=== PATIENT | female | born 1990 | race Caucasian/White ===

== ENCOUNTER 2017-09-06 21:48 | Emergency (ER) | payer OTHER ==
[~2017-09-06 21:48] MED LIST: NAPR550 PO; TAB-TAB PO
[2017-09-06 21:50] VITALS: BP 140/80; PULSE 84; RESP 20; TEMP 97.5; O2SAT 99
--- NOTE | 2017-09-06 22:34 | PD ---
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 She says the pain started tonight. She is having some bilateral pain but was having a very sharp stabbing pain in the right lower quadrant. She says she had a very dark bowel movement. She is about 7 weeks . she had gone to her primary care doctor 2 weeks ago and had a titer done and was told she was 5 weeks . She has not had any bleeding. She had one prior and had a miscarriage at 6 weeks gestation. [facility] Past Medical History Medical History: Denies Significant Hx Diminished Hearing: No Tetanus Vaccination: Unknown Influenza Vaccination: No ?: : 2 Para: 0 Past Surgical History Surgical History: No Previous Surgery Social History Alcohol Use: No Tobacco Use: No Substance Use: No Allergies-Medications (Allergen,Severity, Reaction): Coded Allergies: No Known Allergies (Unverified , 08/21/15) Reported Meds & Prescriptions Reported Meds & Active Scripts Active Review of Systems General / Constitutional: No: Fever, Chills Eyes: No: Diploplia Cardiovascular: No: Chest Pain or Discomfort, Palpitations Respiratory: No: Cough Gastrointestinal: Positive: Abdominal Pain Genitourinary: Positive: Pelvic Pain, No: Vaginal Bleeding Musculoskeletal: No: Myalgias, Arthralgias Skin: No Rash Neurologic: No: Weakness Physical Exam Narrative GENERAL: Well-developed female SKIN: Focused skin assessment warm/dry. HEAD: Atraumatic. Normocephalic. EYES: Pupils equal and round. No scleral icterus. No injection or drainage. ENT: No nasal bleeding or discharge. Mucous membranes pink and moist. NECK: Trachea midline. No JVD. CARDIOVASCULAR: Regular rate and rhythm. No murmur appreciated. RESPIRATORY: No accessory muscle use. Clear to auscultation. Breath sounds equal bilaterally. GASTROINTESTINAL: Abdomen soft, non-tender, nondistended. Hepatic and splenic margins not palpable. LARGE ANIMAL VETERINARIAN: There is no bleeding from the cervical os. There is mild discomfort with bimanual exam. I don't feel any masses MUSCULOSKELETAL: No obvious deformities. No clubbing. No cyanosis. No edema. NEUROLOGICAL: Awake and alert. No obvious cranial nerve deficits. Motor grossly within normal limits. Normal speech. PSYCHIATRIC: Appropriate mood and affect; insight and judgment normal. Data Data Last Documented VS Vital Signs Date Time Temp Pulse Resp B/P (MAP) Pulse Ox O2 Delivery O2 Flow Rate FiO2 09/06/17 21:50 97.5 84 20 140/80 (100) 99 Orders Orders Complete Blood Count With Diff (09/06/17 22:18) Urinalysis - C+S If Indicated (09/06/17 22:18) Beta Hcg (Quant/Titer) (09/06/17 22:18) Complete Rh (09/06/17 22:18) Us Pelvis (Ques Pr/Ect)W Trans (09/06/17 22:58) Labs Laboratory Tests Test 09/06/17 22:00 09/06/17 22:45 White Blood Count 12.5 TH/MM3 Red Blood Count 4.63 MIL/MM3 Hemoglobin 12.1 GM/DL Hematocrit 37.0 % Mean Corpuscular Volume 79.8 FL Mean Corpuscular Hemoglobin 26.0 PG Mean Corpuscular Hemoglobin Concent 32.6 % Red Cell Distribution Width 11.8 % Platelet Count 226 TH/MM3 Mean Platelet Volume 9.6 FL Neutrophils (%) (Auto) 78.7 % Lymphocytes (%) (Auto) 13.6 % Monocytes (%) (Auto) 5.9 % Eosinophils (%) (Auto) 1.3 % Basophils (%) (Auto) 0.5 % Neutrophils # (Auto) 9.8 TH/MM3 Lymphocytes # (Auto) 1.7 TH/MM3 Monocytes # (Auto) 0.7 TH/MM3 Eosinophils # (Auto) 0.2 TH/MM3 Basophils # (Auto) 0.1 TH/MM3 CBC Comment DIFF FINAL Differential Comment Human Chorionic Gonadotropin, Quant [id number] MIU/ML Urine Color JEMMA Urine Turbidity CLEAR Urine pH 6.0 Urine Specific [place] 1.028 Urine Protein NEG mg/dL Urine Glucose (UA) NEG mg/dL Urine Ketones 15 mg/dL Urine Occult Blood NEG Urine Nitrite NEG Urine Bilirubin NEG Urine Leukocyte Esterase TRACE Urine WBC 3-5 /hpf Urine Squamous Epithelial Cells 0-5 /hpf Urine Amorphous Sediment SMALL Urine Mucus MANY /lpf Microscopic Urinalysis Comment CULT NOT INDICATED MDM Medical Decision Making Medical Screen Exam Complete: Yes Emergency Medical Condition: Yes Medical Record Reviewed: Yes Differential Diagnosis Differential includes gastroenteritis, threatened AB, ectopic Narrative Course Beta titer is 107,825. Urine is negative for infection. She is Rh+. Hemoglobin is 12. Ultrasound shows a viable intrauterine Diagnosis Primary Impression: Intrauterine Additional Instructions: Follow-up with TRANSPORTATION ENGINEERING TECHNICIAN, return as needed Disposition: 01 DISCHARGE HOME Condition: Stable Puma Nicolas MD Sep 06, 2017 22:34
[2017-09-06 22:52] LABS: AUTOMATED NEUTROPHIL # 9.8 TH/MM3 (1.8-7.7); BASOPHIL # 0.1 TH/MM3 (0-0.2); BASOPHIL % 0.5 % (0.0-2.0); EOSINOPHIL # 0.2 TH/MM3 (0-0.4); EOSINOPHIL % 1.3 % (0.0-4.0); HEMO FLAGS DIFF FINAL; LYMPH % 13.6 % (9.0-44.0); LYMPHOCYTE # 1.7 TH/MM3 (1.0-4.8); MEAN CELL VOLUME 79.8 FL (80.0-100.0); MEAN CORPUSCULAR HGB CONC 32.6 % (32.0-36.0); MONO % 5.9 % (0.0-8.0); NEUT % 78.7 % (16.0-70.0); PLATELET COUNT 226 TH/MM3 (150-450); RED BLOOD COUNT 4.63 MIL/MM3 (4.00-5.30); RED CELL DISTRIBUTION WIDTH 11.8 % (11.6-17.2); WHITE BLOOD COUNT 12.5 TH/MM3 (4.0-11.0)
[2017-09-06 23:07] LABS: BLOOD, URINE NEG (NEG); GLUCOSE,URINE NEG (NEG); KETONE, URINE 15 mg/dL (NEG); NITRITE,URINE NEG (NEG)
[2017-09-06 23:19] LABS: MUCUS URINE MANY /lpf (OCC); URINE COLOR AMBER (YELLW/STRAW)
[2017-09-06 23:20] LABS: COMMENT (UR) CULT NOT INDICATED; CULTURE IF INDICATED CULT NOT INDICATED; SQUAMOUS EPITHELIAL CELL URINE 0-5 /hpf (0-5)
[2017-09-06 23:29] LABS: BETA HCG QUANT 107825 MIU/ML (0-5)
[2017-09-06 23:30] VITALS: BP 114/66; PULSE 77; RESP 20; O2SAT 99
--- NOTE | 2017-09-07 00:03 | RADRPT ---
EXAM DATE/TIME: 09/06/2017 23:31 [place] COMPARISON: No previous studies available for comparison. INDICATIONS : Pelvic pain. LAB(S): Beta-hC,825 MEDICAL HISTORY : . SURGICAL HISTORY : None. ENCOUNTER: Initial ACUITY: 3 days PAIN SCORE: 4/10 LOCATION: Bilateral pelvis MEASUREMENTS: UTERUS: 8.1 x 5.3 x 4.9 cm ENDOMETRIAL STRIPE: >20 mm RIGHT OVARY: Non visualized LEFT OVARY: 4.0 x 3.4 x 2.4 cm FREE FLUID: No CROWN RUMP LENGTH: 0.6 = 6 WKS 3 DAYS FHR: 131 BPM FINDINGS: UTERUS: Intrauterine . [place]-rump length measures 6.4mm correlating with a 6 week 3 day . F etal heart tones at 131 beats per minute. RIGHT OVARY: Right ovary not seen. LEFT OVARY: Left ovary contains a simple cyst measuring 2.8 cm. MISCELLANEOUS: No free fluid. CONCLUSION: 1. Intrauterine estimated 6 weeks 3 days. 2. Probable corpus luteal cyst left ovary measures 2.8 cm. 3. Nonvisualization right ovary. Fermin Joyner MD on September 07, 2017 at 0:00 Board Certified Radiologist. This report was verified electronically.
== END 2017-09-07 00:07 | disposition home or self-care (01) ==
LOC: PHED 21:48
DX: O26.891 Other specified pregnancy related conditions, first trimester (principal); R10.2 Pelvic and perineal pain; Z3A.01 Less than 8 weeks gestation of pregnancy
CPT/HCPCS: 76700; 81001; 84702; 85025; 86901; 99284

== ENCOUNTER 2018-04-22 05:52 | Inpatient (IN) | payer OTHER ==
[2018-04-22] MEDS ORDERED: LIDOCAINE 1.5%/EPINEPHrine 1:200,000 PF 5 ML AMP ONE (07:19)
[2018-04-22] MEDS ORDERED: fentaNYL 2MCG-BUPIV 0.125% INJ 150 ML EPIDURAL ONE (07:21)
[2018-04-22] MEDS ORDERED: LACTATED RINGER'S 1000 ML INJ 1,000 ML IV SCH ×3 (07:25→14:29)
[2018-04-22] MEDS ORDERED: LACTATED RINGER'S 1000 ML INJ 1,000 ML IV PRN (07:25)
[2018-04-22] MEDS ORDERED: LIDOCAINE HCL 1% 50 ML VIAL I-DERMAL PRN (07:30)
[2018-04-22] MEDS ORDERED: CITRIC ACID-SODIUM CITRATE LIQ 30 ML UDC PO SCH ×2 (07:30→10:00)
[2018-04-22] MEDS ORDERED: MINERAL OIL 10 ML VIAL TOPICAL PRN (07:30)
[2018-04-22] MEDS ORDERED: LIDOCAINE HCL 1% 50 ML VIAL INFIL PRN (07:30)
[2018-04-22] MEDS ORDERED: SODIUM CHLORID 0.9% 500 ML INJ 500 ML IV PRN (07:30)
[2018-04-22] MEDS ORDERED: OXYTOCIN 30 UNITS-500ML PREMIX 500 ML IV ONE ×2 (07:30→09:30)
[2018-04-22 07:37] LABS: BASOPHIL % 0.3 % (0.0-2.0); EOSINOPHIL # 0.1 TH/MM3 (0-0.4); EOSINOPHIL % 0.9 % (0.0-4.0); HEMATOCRIT 30.2 % (35.0-46.0); HEMOGLOBIN 9.6 GM/DL (11.6-15.3); LYMPH % 14.9 % (9.0-44.0); LYMPHOCYTE # 1.9 TH/MM3 (1.0-4.8); MEAN CELL VOLUME 74.3 FL (80.0-100.0); MEAN CORPUSCULAR HEMOGLOBIN 23.6 PG (27.0-34.0); MEAN CORPUSCULAR HGB CONC 31.8 % (32.0-36.0); MEAN PLATELET VOLUME 11.2 FL (7.0-11.0); MONO % 7.1 % (0.0-8.0); MONOCYTE # 0.9 TH/MM3 (0-0.9); NEUT % 76.8 % (16.0-70.0); PLATELET COUNT 155 TH/MM3 (150-450); RED BLOOD COUNT 4.07 MIL/MM3 (4.00-5.30); RED CELL DISTRIBUTION WIDTH 14.6 % (11.6-17.2)
[2018-04-22] MEDS ORDERED: SODIUM CHLOR 0.9% 1000 ML INJ 1,000 ML IV PRN (07:45)
[2018-04-22 07:56] LABS: BACTERIA, URINE MOD /hpf; BILIRUBIN, URINE NEG (NEG); BLOOD, URINE NEG (NEG); GLUCOSE,URINE NEG (NEG); KETONE, URINE NEG (NEG); MUCUS URINE MANY /lpf (OCC); NITRITE,URINE NEG (NEG); PH, URINE 6.5 (5.0-8.5); SQUAMOUS EPITHELIAL CELL URINE 16 /hpf (0-5); URINE COLOR YELLOW (YELLW/STRAW); URINE LEUKOCYTE ESTERASE LARGE (NEG)
--- NOTE | 2018-04-22 08:04 | HHI.HP ---
HPI Chief Complaint breech for version or CS Date Seen: Apr 22, 2018 Time Seen: 07:00 Travel History International Travel<30 Days: No Contact w/Intl Traveler<30Days: No Known Affected Area: No History of Present Illness HPI 28 yo who is 40 weeks and here with breech infant wants version and then CS if we are not successful. Pt ready for epidural and understands risks and benefits Weeks Gestation: 40 Para: 0 : 1 History Past Medical History Medical History: Denies Significant Hx Past Surgical History Surgical History: No Previous Surgery Family History Family History: Negative Social History Alcohol Use: No Tobacco Use: No Substance Abuse: No Allergies-Medications (Allergen,Severity, Reaction): Coded Allergies: No Known Allergies (Unverified Allergy, Unknown, 04/22/18) Review of Systems Except as stated in HPI: all other systems reviewed are Neg Physical Exam Narrative GENERAL: Well-nourished, well-developed patient. SKIN: Warm and dry. HEAD: Normocephalic and atraumatic. EYES: No scleral icterus. No injection or drainage. ENT: No nasal drainage noted. Mucous membranes pink. Airway patent. NECK: Supple, trachea midline. No JVD. CARDIOVASCULAR: Regular rate and rhythm without murmurs, gallops, or rubs. RESPIRATORY: Breath sounds equal bilaterally. No accessory muscle use. BREASTS: Bilateral exam showed no masses , no retractions, no nipple discharge. ABDOMEN/GI: Abdomen soft, non-tender, bowel sounds present, no rebound, no guarding Gravid to [-] weeks size Fundal Height: 40 GENITOURINARY: External Genitalia: intact and normal in appearance BUS glands: [-] Cervix: [-] Dilatation: closed Effacement: [-] Station: [-] Presentation: breech Membranes: intact Uterine Contractions: none FHT's: Category: 1 Baseline: [-] Reactive: [-] Variability: [-] Decels: [-] EXTREMITIES: No cyanosis or edema. BACK: Nontender without obvious deformity. No CVA tenderness. NEUROLOGICAL: Awake and alert. Motor and sensory grossly within normal limits. Five out of 5 muscle strength in all muscle groups. Normal speech. Caprini VTE Risk Assessment Caprini VTE Risk Assessment: No/Low Risk (score <= 1) Caprini Risk Assessment Model Point Value = 1 Point Value = 2 Point Value = 3 Point Value = 5 Age 41-60 Minor surgery BMI > 25 kg/m2 Swollen legs Varicose veins or History of unexplained or recurrent spontaneous Oral contraceptives or hormone replacement Sepsis (< 1 month) Serious lung disease, including pneumonia (< 1 month) Abnormal pulmonary function Acute myocardial infarction Congestive heart failure (< 1 month) History of inflammatory bowel disease Medical patient at bed rest Age 61-74 Arthroscopic surgery Major open surgery (> 45 min) Laparoscopic surgery (> 45 min) Malignancy Confined to bed (> 72 hours) Immobilizing plaster cast Central venous access Age >= 75 History of VTE Family history of VTE Factor V Leiden Prothrombin [id number] Lupus anticoagulant Anticardiolipin antibodies Elevated serum homocysteine Heparin-induced thrombocytopenia Other congenital or acquired thrombophilia Stroke (< 1 month) Elective arthroplasty Hip, pelvis, or leg fracture Acute spinal cord injury (< 1 month) Prophylaxis Regimen Total Risk Factor Score Risk Level Prophylaxis Regimen 0-1 Low Early ambulation 2 Moderate Order ONE of the following: *Sequential Compression Device (SCD) *Heparin 5000 units SQ BID 3-4 Higher Order ONE of the following medications: *Heparin 5000 units SQ TID *Enoxaparin/Lovenox 40 mg SQ daily (WT < 150 kg, CrCl > 30 mL/min) *Enoxaparin/Lovenox 30 mg SQ daily (WT < 150 kg, CrCl > 10-29 mL/min) *Enoxaparin/Lovenox 30 mg SQ BID (WT < 150 kg, CrCl > 30 mL/min) AND/OR *Sequential Compression Device (SCD) 5 or more Highest Order ONE of the following medications: *Heparin 5000 units SQ TID (Preferred with Epidurals) *Enoxaparin/Lovenox 40 mg SQ daily (WT < 150 kg, CrCl > 30 mL/min) *Enoxaparin/Lovenox 30 mg SQ daily (WT < 150 kg, CrCl > 10-29 mL/min) *Enoxaparin/Lovenox 30 mg SQ BID (WT < 150 kg, CrCl > 30 mL/min) AND *Sequential Compression Device (SCD) Data Data Vital Signs Reviewed: Yes Orders Orders Lido-Epi Pf 1.5%-1:200,000 Inj (Xylocain (04/22/18 07:19) Fentanyl 2mcg-Bupiv 0.125% Inj (Fentanyl (04/22/18 07:21) Complete Blood Count With Diff (04/22/18 07:24) Abo/Rh Blood Type (04/22/18 07:24) Hold Clot (04/22/18 07:24) Urinalysis - C+S If Indicated (04/22/18 07:24) Specimen To Be Collected PRN (04/22/18 07:24) Admit To Inpatient (04/22/18 ) Code Status (04/22/18 07:25) Vital Signs (Adult) .Per protocol (04/22/18 07:25) Heart (04/22/18 07:25) Amnioinfusion (04/22/18 07:25) Urinary Catheter Management .ONCE (04/22/18:25) Diet Npo (04/22/18 Breakfast) Lactated Ringer's 1000 Ml Inj (Lr 1000 M (04/22/18 07:25) Lactated Ringer's 1000 Ml Inj (Lr 1000 M (04/22/18 07:25) Sodium Chlorid 0.9% 500 Ml Inj (Ns 500 M (04/22/18 07:30) Sodium Chlor 0.9% 1000 Ml Inj (Ns 1000 M (04/22/18 07:45) Lidocaine 1% Inj (50 Ml) (Xylocaine 1% I (04/22/18 07:30) Citric Acid-Sodium Citrate Liq (Bicitra (04/22/18 07:30) Fentanyl Inj (Fentanyl Inj) (04/22/18 07:30) Fentanyl Inj (Fentanyl Inj) (04/22/18 07:30) Ob/Psych Drug Screen, Urine (04/22/18 07:25) Resp Oxygen Non Rebreathe Mask (04/22/18 ) ^ Epidural / Intrathecal Infus (04/22/18 07:25) Oxytocin 30 Units-500ml Premix (Pitocin (04/22/18 07:30) Lidocaine 1% Inj (50 Ml) (Xylocaine 1% I (04/22/18 07:30) Light Mineral Oil (Muri-Lube Oil) (04/22/18 07:30) Inpatient Certification (04/22/18 ) Specimen To Be Collected PRN (04/22/18 07:25) Urine Culture (04/22/18 06:10) Group B Strep: Negative Labs Laboratory Tests Test 04/22/18 06:10 04/22/18 06:20 Urine Color YELLOW Urine Turbidity HAZY Urine pH 6.5 Urine Specific [place] 1.022 Urine Protein 30 Urine Glucose (UA) NEG Urine Ketones NEG Urine Occult Blood NEG Urine Nitrite NEG Urine Bilirubin NEG Urine Urobilinogen LESS THAN 2.0 Urine Leukocyte Esterase LARGE Urine RBC 1 Urine WBC 3 Urine Squamous Epithelial Cells 16 Urine Bacteria MOD Urine Mucus MANY Microscopic Urinalysis Comment CULTURE INDICATED Urine Opiates Screen NEG Urine Barbiturates Screen NEG Urine Amphetamines Screen NEG Urine Benzodiazepines Screen NEG Urine Cocaine Screen NEG Urine Cannabinoids Screen NEG White Blood Count 13.0 Red Blood Count 4.07 Hemoglobin 9.6 Hematocrit 30.2 Mean Corpuscular Volume 74.3 Mean Corpuscular Hemoglobin 23.6 Mean Corpuscular Hemoglobin Concent 31.8 Red Cell Distribution Width 14.6 Platelet Count 155 Mean Platelet Volume 11.2 Neutrophils (%) (Auto) 76.8 Lymphocytes (%) (Auto) 14.9 Monocytes (%) (Auto) 7.1 Eosinophils (%) (Auto) 0.9 Basophils (%) (Auto) 0.3 Neutrophils # (Auto) 10.0 Lymphocytes # (Auto) 1.9 Monocytes # (Auto) 0.9 Eosinophils # (Auto) 0.1 Basophils # (Auto) 0.0 CBC Comment DIFF FINAL Differential Comment Date/Time Source Procedure Growth Status 04/22/18 06:10 Urine Clean Catch Urine Culture Pending Received Assessment/Plan Problem List: (1) 40 weeks gestation of ICD Codes: Z3A.40 - 40 weeks gestation of (2) Breech presentation ICD Codes: O32.1XX0 - Maternal care for breech presentation, not applicable or unspecified Assessment and Plan for version Frank Carrington MD Apr 22, 2018 08:04
[2018-04-22] MEDS ORDERED: LACTATED RINGER'S 1000 ML INJ 1,000 ML IV ONE ×2 (08:21→12:00)
[2018-04-22] MEDS ORDERED: ACETAMINOPHEN 1000 MG/100 ML 100 ML IV ONE (08:41)
[2018-04-22] MEDS ORDERED: ePHEDrine/NS 25 MG/5 ML SYRINGE IV PUSH PRN (09:00)
[2018-04-22] MEDS ORDERED: DO NOT ADMINISTER ANTICOAGULANTS PRN (09:00)
[2018-04-22] MEDS ORDERED: NO SYSTEM NARCOTICS PRN (09:00)
[2018-04-22] MEDS ORDERED: fentaNYL 2MCG-BUPIV 0.125% 150 ML EPIDURAL PRN (09:00)
--- NOTE | 2018-04-22 09:29 | PD.OB.DELI ---
Procedure Note Section Procedure Pre Op Diagnosis: (1) Breech presentation Post Op Diagnosis: (1) Failed external cephalic version Performed by Frank Carrington Procedure: Primary Low Transverse Sec Indication for delivery: malposition Informed consent obtained: For anesthesia, For procedure Confirmed correct: Patient, Procedure, Site, Time-out taken Anesthesia: Epidural Medication prior to procedure: Analgesics Monitoring during procedure: Blood pressure monitoring Urinary catheter: Inserted using sterile technique, To dependent drainage Sterile preparation: Duraprep Position: Supine with wedge to left side Operative Features Skin Incision: Pfannenstiel Uterine Incision: Low transverse w/knife / blunt ext Membranes Ruptured: Artificially Presentation: Occiput anterior Delivery date: Apr 22, 2018 Delivery time: 09:03 Delivery of infant: Uneventful : Female, Single One Minute : 9 Five Minute : 9 Weight: 3510 Status of : Viable Placenta delivered: Intact Estimated blood loss: 300 Procedure tolerated: Well Maternal Condition: Stable Condition: Stable Frank Carrington MD Apr 22, 2018 09:28
[2018-04-22] MEDS ORDERED: SODIUM CHLORIDE 0.9% FLUSH 10 ML FLUSH IV FLUSH PRN (09:30)
[2018-04-22] MEDS ORDERED: oxyCODONE/ACETAMINOPHEN 5 MG/325 MG TAB PO PRN (09:30)
[2018-04-22] MEDS ORDERED: KETOROLAC TROMETHAMINE 60 MG/2 ML (IM) VIAL IM PRN (09:30)
[2018-04-22] MEDS ORDERED: ceFAZolin 2 GM PREMIX 50 ML IV SCH (09:30)
--- NOTE | 2018-04-22 09:56 | MP ---
cc: Frank Carrington MD DATE OF OPERATION: DATE OF PROCEDURE: 04/22/2018. PROCEDURE PERFORMED: Primary low transverse section. PREOPERATIVE DIAGNOSES: Breech presentation 40 weeks, failed version. POSTOPERATIVE DIAGNOSES: Breech presentation 40 weeks, failed version. SURGEON: Frank Carrington MD EXECUTIVE MEETING MANAGER: No data control assistant. COMPLICATIONS: None. ANESTHESIA: Spinal anesthesia, Dr. Lewis. FINDINGS: Normal female pelvic anatomy. Live female , Apgars 9 and 9, footling breech presentation. PROCEDURE IN DETAIL: After informed consent, the patient was taken to the operating room where she was placed under epidural anesthesia, was placed in supine position. Wilder catheter was already in place to gravity. After adequate anesthesia was assured and a timeout was taken, a Pfannenstiel skin incision was carried sharply through the skin to the fascia. The fascia was nicked in the midline. The incision was extended laterally using Gonzalez scissors. Rectus muscle dissected off the fascia with sharp and blunt dissection. Peritoneum was entered bluntly with a finger. The bladder blade was placed in the abdomen. Bladder flap was created by dissecting the bladder off the lower uterine segment. A low transverse uterine incision was then made, carried sharply to the uterine cavity, clear fluid was noted. The incision was extended laterally using blunt traction. The hand was placed in the uterus. The feet were at the opening. The feet were brought through the incision using fundal pressure. The infant delivered to the scapulas. The was rotated to the left and the right arm was flexed across the chest. The infant was rotated to the right and the left arm was flexed across the chest. Using Mauriceau maneuver, we delivered the baby's head, keeping the head flexed using fundal pressure delivered the cephalic portion. This was all done without difficulty. We waited 45 seconds for cord clamping. Once the cord was clamped and cut, the was handed to pediatrics in attendance. Cord blood was collected. Placenta was delivered manually. Uterus exteriorized, cleared free from all remaining products of conception. Uterine incision was then closed with a running locking stitch of chromic suture and imbricating layer was placed over that incision and a second layer of chromic suture also. Uterus was placed back into the abdomen and noted to be hemostatic. The peritoneum was closed with Vicryl suture. The fascia was closed with Vicryl suture, and the skin was closed with subcuticular stitch. Each layer was noted to be hemostatic prior to closure. The patient tolerated the procedure well. Lap and instrument counts were reported as correct. Mom and her baby went to the recovery room. MD JL Hannah/ASHLEIGH , 09:32 AM , 09:55 AM
[2018-04-22] MEDS ORDERED: OXYTOCIN 30 UNITS-500ML PREMIX 500 ML ONE (10:59)
[2018-04-22] MEDS ORDERED: DEXAMETHASONE SOD PHOS 4 MG/ML VIAL IV ONE (12:00)
[2018-04-22] MEDS ORDERED: KETOROLAC TROMETHAMINE 30 MG/ML (IVP) VIAL IV PUSH ONE (12:00)
[2018-04-22] MEDS ORDERED: ceFAZolin INJ 1,000 MG VIAL IV ONE (12:00)
[2018-04-22] MEDS ORDERED: OXYTOCIN 10 UNIT/ML AMP IV ONE (12:00)
[2018-04-22] MEDS ORDERED: LIDOCAINE 2%/EPINEPHrine PF 1:200,000 20ML SDV OTHER ONE (12:00)
[2018-04-22] MEDS ORDERED: PHENYLEPH/NS 1000 MCG/10 ML SYR IV ONE (12:00)
[2018-04-22] MEDS ORDERED: ONDANSETRON HCL 4 MG/2 ML VIAL IV ONE (12:00)
[2018-04-22] MEDS: IBUPROFEN 600 MG TAB PO PRN ×2 (13:43→19:42)
[2018-04-22] MEDS ORDERED: OXYTOCIN 30 UNITS-500ML PREMIX 500 ML IV PRN (14:30)
[2018-04-22] MEDS: SIMETHICONE 80 MG CHEWABLE TAB PO PRN (17:44)
[2018-04-22] MEDS: oxyCODONE/ACETAMINOPHEN 5 MG/325 MG TAB PO PRN ×2 (17:45→22:48)
[2018-04-22 20:24] VITALS: BP 121/76; PULSE 63; RESP 18; TEMP 97.6
[2018-04-23 00:04] VITALS: BP 121/76; PULSE 64; RESP 18; TEMP 98.1
[2018-04-23] MEDS: IBUPROFEN 600 MG TAB PO PRN ×3 (03:21→21:31)
[2018-04-23] MEDS: oxyCODONE/ACETAMINOPHEN 5 MG/325 MG TAB PO PRN ×4 (03:21→21:30)
[2018-04-23 04:51] VITALS: BP 109/68; PULSE 67; RESP 18; TEMP 98.1
[2018-04-23 05:51] LABS: AUTOMATED NEUTROPHIL # 11.2 TH/MM3 (1.8-7.7); BASOPHIL % 0.2 % (0.0-2.0); EOSINOPHIL # 0.1 TH/MM3 (0-0.4); EOSINOPHIL % 0.6 % (0.0-4.0); HEMATOCRIT 21.7 % (35.0-46.0); LYMPH % 13.1 % (9.0-44.0); LYMPHOCYTE # 1.9 TH/MM3 (1.0-4.8); MEAN CELL VOLUME 75.5 FL (80.0-100.0); MEAN CORPUSCULAR HEMOGLOBIN 23.9 PG (27.0-34.0); MEAN CORPUSCULAR HGB CONC 31.6 % (32.0-36.0); MEAN PLATELET VOLUME 11.7 FL (7.0-11.0); MONO % 8.5 % (0.0-8.0); MONOCYTE # 1.2 TH/MM3 (0-0.9); NEUT % 77.6 % (16.0-70.0); PLATELET COUNT 131 TH/MM3 (150-450); RED BLOOD COUNT 2.87 MIL/MM3 (4.00-5.30); RED CELL DISTRIBUTION WIDTH 14.4 % (11.6-17.2); WHITE BLOOD COUNT 14.5 TH/MM3 (4.0-11.0)
[2018-04-23 05:58] LABS: HEMOGLOBIN 6.9 GM/DL (11.6-15.3)
--- NOTE | 2018-04-23 07:04 | HHI.OB ---
Subjective Post Day: 1 Remarks doing well. She has asymptomatic anemia Objective Vitals/I&O Vital Signs Date Time Temp Pulse Resp B/P (MAP) Pulse Ox O2 Delivery O2 Flow Rate FiO2 04/23/18 04:51 98.1 67 18 109/68 (82) 04/23/18 00:04 98.1 64 18 121/76 (91) 04/22/18 20:24 97.6 63 18 121/76 (91) Objective Remarks GENERAL: Well-nourished, well-developed patient. ABDOMEN/GI: Abdomen soft, non-tender. Fundus: Firm, non-tender at umbilicus. GENITOURINARY: Light to moderate bleeding. EXTREMITIES: No cyanosis or edema, non-tender, without signs of DVT. Medications and IVs Current Medications Medications (Trade) Dose Ordered Sig/Maggy Route Start Time Stop Time Status Last Admin ([facility] [place] Nursing Information) No systemic narcotics to be given except... UNSCH PRN .XX 04/22/18 09:00 04/23/18 08:59 ([facility] [place] Nursing Information) DO NOT ADMINISTER ANY ANTICOAGUL... UNSCH PRN .XX 04/22/18 09:00 04/23/18 08:59 Fentanyl/ Bupivacaine/ Sodium Chlor 150 ml @ 0 mls/hr TITRATE PRN EPIDURAL 04/22/18 09:00 (ePHEDrine/NS 25 MG/5 ML SYR) 10 mg UNSCH PRN IV PUSH 04/22/18 09:00 04/23/18 08:59 Lactated Ringer's 1,000 ml @ 100 mls/hr Q10H IV 04/22/18 14:29 04/23/18 10:28 04/22/18 19:39 Oxytocin 500 ml @ 100 mls/hr UNSCH X1 PRN IV 04/22/18 14:30 04/23/18 14:29 (NS Flush) 2 ml BID IV FLUSH 04/22/18 21:00 (NS Flush) 2 ml UNSCH PRN IV FLUSH 04/22/18 09:30 (Mylicon Chew) 80 mg QID PRN PO 04/22/18 09:30 04/22/18 17:44 (Motrin) 600 mg Q6H PRN PO 04/22/18 10:30 04/23/18 03:21 (Toradol Inj) 30 mg Q6H PRN IM 04/22/18 09:30 04/23/18 09:29 Future Hold (Percocet 5-325 Mg) 1 tab Q4H PRN PO 04/22/18 09:30 (Percocet 5-325 Mg) 2 tab Q4H PRN PO 04/22/18 09:30 04/23/18 03:21 Assessment/Plan Problem List: (1) 40 weeks gestation of ICD Codes: Z3A.40 - 40 weeks gestation of (2) Breech presentation ICD Codes: O32.1XX0 - Maternal care for breech presentation, not applicable or unspecified Assessment and Plan CS for Breech Frank Carrington MD Apr 23, 2018 07:04
[2018-04-23] MEDS: SIMETHICONE 80 MG CHEWABLE TAB PO PRN (09:45)
[2018-04-23] MEDS ORDERED: DIPHTH/TETANUS/ACEL PERTUSSIS (BOOSTER) 0.5 ML VIAL/PFS IM ONE (16:00)
[2018-04-23] MEDS ORDERED: MEASLES, MUMPS, RUBELLA VACCINE 0.5 ML VIAL SQ ONE (16:00)
[2018-04-23] MEDS: SODIUM CHLORIDE 0.9% FLUSH 10 ML FLUSH IV FLUSH SCH (21:00)
[2018-04-24] MEDS: IBUPROFEN 600 MG TAB PO PRN (07:42)
--- NOTE | 2018-04-24 07:59 | HHI.DCPOC ---
Discharge Care Plan Diagnosis: (1) delivery delivered Report Symptoms to Your Doctor -Temperature above 100.5 degrees -Redness, of incision or excessive or foul smelling drainage -Unusual pain or calf pain -Increased vaginal bleeding -Painful or difficulty urinating -Feelings of extreme sadness or anxiety after 2 weeks Goals to Promote Your Health * To prevent worsening of your condition and complications * To maintain your health at the optimal level Directions to Meet Your Goals Take your medications as prescribed Follow your dietary instruction Follow activity as directed Ensure plenty of rest for recovery Drink fluids for hydration Keep your appointments as scheduled Take your immunizations and boosters as scheduled If your symptoms worsen call your PCP, if no PCP go to Urgent Care Center or Emergency Room Smoking is Dangerous to Your Health. Avoid second hand smoke Call the 24-hour crisis hotline for domestic abuse at Frank Carrington MD Apr 24, 2018 07:59
--- NOTE | 2018-04-24 07:59 | HHI.OB ---
Subjective Post Day: 2 Remarks doing well Objective Objective Remarks GENERAL: Well-nourished, well-developed patient. ABDOMEN/GI: Abdomen soft, non-tender. Fundus: Firm, non-tender at umbilicus. GENITOURINARY: Light to moderate bleeding. EXTREMITIES: No cyanosis or edema, non-tender, without signs of DVT. Medications and IVs Current Medications Medications (Trade) Dose Ordered Sig/Maggy Route Start Time Stop Time Status Last Admin Fentanyl/ Bupivacaine/ Sodium Chlor 150 ml @ 0 mls/hr TITRATE PRN EPIDURAL 04/22/18 09:00 (NS Flush) 2 ml BID IV FLUSH 04/22/18 21:00 (NS Flush) 2 ml UNSCH PRN IV FLUSH 04/22/18 09:30 (Mylicon Chew) 80 mg QID PRN PO 04/22/18 09:30 04/23/18 09:45 (Motrin) 600 mg Q6H PRN PO 04/22/18 10:30 04/24/18 07:42 (Percocet 5-325 Mg) 1 tab Q4H PRN PO 04/22/18 09:30 (Percocet 5-325 Mg) 2 tab Q4H PRN PO 04/22/18 09:30 04/23/18 21:30 Assessment/Plan Problem List: (1) 40 weeks gestation of ICD Codes: Z3A.40 - 40 weeks gestation of (2) Breech presentation ICD Codes: O32.1XX0 - Maternal care for breech presentation, not applicable or unspecified (3) delivery delivered ICD Codes: O82 - Encounter for delivery without indication Assessment and Plan CS for Breech Attending Attestation [facility] Frank Carrington MD Apr 24, 2018 07:59
--- NOTE | 2018-04-24 08:02 | HHI.DS ---
Admission Date Apr 22, 2018 at 05:52 Discharge Date: Apr 24, 2018 Admitting Diagnosis Diagnosis: (1) delivery delivered Diagnosis: Principal ICD Codes: O82 - Encounter for delivery without indication Delivery Date: Apr 22, 2018 : Primary Reason: breech failed version Infant: Female, Single Brief History 28 yo who is 40 weeks and here with breech infant wants version and then CS if we are not successful. Pt ready for epidural and understands risks and benefits Hospital Course CS now POD #2 doing well for DC home Pt Condition on Discharge: Good Discharge Disposition: Discharge Home Discharge Instructions Diet Instructions: As Tolerated, No Restrictions Activities You Can Perform: Pelvic Rest Activities to Avoid: Driving for 24 hrs Follow up Referrals: TECHNICAL PHOTOGRAPHER - 2 Weeks @ [facility] with Frank Carrington MD, John William C. MD Apr 24, 2018 08:02
[2018-04-24] MEDS ORDERED: OXYC1TAB63 PO (08:03)
[2018-04-24] MEDS: SODIUM CHLORIDE 0.9% FLUSH 10 ML FLUSH IV FLUSH SCH (09:00)
[2018-04-24] MEDS ORDERED: DIPHTH/TETANUS/ACEL PERTUSSIS (BOOSTER) 0.5 ML VIAL/PFS IM ONE (10:30)
== END 2018-04-24 12:09 | disposition home or self-care (01) | DRG 766 ==
LOC: H2EB 05:52 → H1EA 11:12
PROVIDERS: ADMIT Obstetrics & Gynecology; ATTEND Obstetrics & Gynecology
PROC: 10D00Z1 Extraction of Products of Conception, Low, Open Approach (ICD-10-PCS; principal; 2018-04-22)
DX: O32.8XX0 Maternal care for other malpresentation of fetus, not applicable or unspecified (principal); D64.9 Anemia, unspecified; Z23 Encounter for immunization; Z37.0 Single live birth; Z3A.40 40 weeks gestation of pregnancy; O99.02 Anemia complicating childbirth
CPT/HCPCS: 80307; 81001; 85025; 86900; 86901; 87086; 90715; G0481; J0131; J0690; J1100; J1885; J2370; J2405; J2590; J3010; J7120